=== PATIENT | female | born 1975 | race Caucasian/White ===

== ENCOUNTER 2016-02-28 19:19 | Emergency (ER) | payer OTHER ==
--- NOTE | 2016-02-28 21:26 | ED CLINICAL REPORT ---
Clinical Report - Physicians/Mid Levels [facility] [address] [place] [address] 02/28/2016 19:18 Patient: MARTIN MARTIN Time Seen: 20:29 Feb 28 2016. Arrived- By private vehicle. Historian- patient. HISTORY OF PRESENT ILLNESS Chief Complaint: DYSPNEA and HISTORY OF ASTHMA. This started 7 days and is still present. The dyspnea is described as moderate. The patient has had a cough. Takes asthma medications. (Patient reports asthma, worsening of her symptoms over 7 days, recently started on azithromycin, tomorrow is her last they have the antibiotic, taking breathing treatments at home as prescribed No recent travel. No fevers. Shortness of breath. Denies history of cardiac problems history of PE.). REVIEW OF SYSTEMS No sore throat, nasal discharge, fever, headache or palpitations. No calf pain, abdominal pain or black stools. All systems otherwise negative, except as recorded above. SOCIAL HISTORY Former smoker. Alcohol use. History of drug use: marijuana. ADDITIONAL NOTES The nursing notes have been reviewed. PHYSICAL EXAM Vital Signs: 02/28/2016 19:57 BP: 137/78. HR: 98. RR: 18. O2 saturation: 94%. Temp: 99.4 F. Pain level now: 8/10. Appearance: Alert. ENT: Pharynx normal. Uvula midline. Neck: Normal inspection. CVS: Normal heart rate and rhythm. Heart sounds normal. Respiratory: No respiratory distress. No fatigue. Wheezing present. No prolonged expiration. Abdomen: Soft and nontender. No organomegaly. No abdominal tenderness. Neuro: Oriented X 3. No motor deficit. PROGRESS AND PROCEDURES Course of Care: At this time patient is afebrile, isolated wheezing, PE less likely. Patient improved with DuoNeb treatment in the ER, 97% on room air. No retractions or tachypnea. No respiratory distress. Will start on Medrol Dosepak. Patient has good follow-up. Stable. No chest pain. 02/28/2016 21:22 BP: 121/71. HR: 88. RR: 14. O2 saturation: 97%. Patient is stable. Patient/family counseled. Differential Diagnosis: I considered viral bronchitis, laryngotracheobronchitis, croup, viral pneumonia, bacterial bronchitis, bacterial pneumonia, mycoplasmal bronchitis, chlamydial bronchitis, bronchospasm, allergic bronchospasm and pulmonary embolism as a possible cause of cough in this patient. This is a partial list of diagnoses considered. Disposition: Discharged. CLINICAL IMPRESSION Moderate persistent asthma with an acute exacerbation. INSTRUCTIONS Prescription Medications: Robitussin A-C cough syrup take five (5) mL orally every 6 hours as needed for cough for 3 days. Dispense sixty (60) mL. No refill. Substitution is permissible. Medrol Dosepak: take according to package directions. Dispense one (1) dosepak. No refills. Substitution is permissible. Follow-up: Follow up with your doctor in three days. Understanding of the discharge instructions verbalized. (Electronically signed by Bobbi Encinas P.A.-C 02/28/2016 21:41)
--- NOTE | 2016-02-28 21:26 | ED CLINICAL REPORT ---
Clinical Report - Physicians/Mid Levels [facility] [address] [place] [address] 02/28/2016 19:18 Patient: MARTIN MARTIN Time Seen: 20:29 Feb 28 2016. Arrived- By private vehicle. Historian- patient. HISTORY OF PRESENT ILLNESS Chief Complaint: DYSPNEA and HISTORY OF ASTHMA. This started 7 days and is still present. The dyspnea is described as moderate. The patient has had a cough. Takes asthma medications. (Patient reports asthma, worsening of her symptoms over 7 days, recently started on azithromycin, tomorrow is her last they have the antibiotic, taking breathing treatments at home as prescribed No recent travel. No fevers. Shortness of breath. Denies history of cardiac problems history of PE.). REVIEW OF SYSTEMS No sore throat, nasal discharge, fever, headache or palpitations. No calf pain, abdominal pain or black stools. All systems otherwise negative, except as recorded above. SOCIAL HISTORY Former smoker. Alcohol use. History of drug use: marijuana. ADDITIONAL NOTES The nursing notes have been reviewed. PHYSICAL EXAM Vital Signs: 02/28/2016 19:57 BP: 137/78. HR: 98. RR: 18. O2 saturation: 94%. Temp: 99.4 F. Pain level now: 8/10. Appearance: Alert. ENT: Pharynx normal. Uvula midline. Neck: Normal inspection. CVS: Normal heart rate and rhythm. Heart sounds normal. Respiratory: No respiratory distress. No fatigue. Wheezing present. No prolonged expiration. Abdomen: Soft and nontender. No organomegaly. No abdominal tenderness. Neuro: Oriented X 3. No motor deficit. PROGRESS AND PROCEDURES Course of Care: At this time patient is afebrile, isolated wheezing, PE less likely. Patient improved with DuoNeb treatment in the ER, 97% on room air. No retractions or tachypnea. No respiratory distress. Will start on Medrol Dosepak. Patient has good follow-up. Stable. No chest pain. 02/28/2016 21:22 BP: 121/71. HR: 88. RR: 14. O2 saturation: 97%. Patient is stable. Patient/family counseled. Differential Diagnosis: I considered viral bronchitis, laryngotracheobronchitis, croup, viral pneumonia, bacterial bronchitis, bacterial pneumonia, mycoplasmal bronchitis, chlamydial bronchitis, bronchospasm, allergic bronchospasm and pulmonary embolism as a possible cause of cough in this patient. This is a partial list of diagnoses considered. Disposition: Discharged. CLINICAL IMPRESSION Moderate persistent asthma with an acute exacerbation. INSTRUCTIONS Prescription Medications: Robitussin A-C cough syrup take five (5) mL orally every 6 hours as needed for cough for 3 days. Dispense sixty (60) mL. No refill. Substitution is permissible. Medrol Dosepak: take according to package directions. Dispense one (1) dosepak. No refills. Substitution is permissible. Follow-up: Follow up with your doctor in three days. Understanding of the discharge instructions verbalized. (Electronically signed by Bobbi Encinas P.A.-C 02/28/2016 21:41)
--- NOTE | 2016-02-28 21:26 | ED ORDER SUMMARY ---
..... Patient: MARTIN MARTIN OrderSheet [facility] VisitID: [id number] [place] [address] 40y, F Registration Date/Time: 02/28/2016 ORDER SHEET Weight: 99.7 kg (stated) Allergies: Nicoderm, PCN, Shellfish-derived Products, Sulfa Drugs GENERAL ORDERS: MEDICATION ORDERS: DuSade Neb Tx 1 unit dose (NOW) (20:10 02/28/2016 Scooby P.A.-C) (21:38 JQuivey R.N.) Dexamethasone PO 8mg (NOW) (20:44 02/28/2016 Scooby Shin.AKarla-C) ([facility] 21:38 JQuivey R.N.) (21:42 JQuivey R.N.) IV FLUIDS: ORDER SHEET NOTES: [Electronically signed by Bobbi Encinas P.A.-C (21:41 02/28/2016)] [Electronically signed by Jeremy Gonzalez R.N. (23:45 02/28/2016)] [Electronically locked/signed by Jeremy Gonzalez R.N. (23:45 02/28/2016)]
--- NOTE | 2016-02-28 21:26 | ED NURSING NOTES ---
Clinical Report - Nurses [facility] [address] [place] [address] 02/28/2016 19:18 Patient: MARTIN MARTIN TRIAGE Triage time 19:57. Acuity: LEVEL 3. Chief Complaint: DYSPNEA and COUGH. 20:04. Alert. SEPSIS SCREEN: Sepsis Screen. Negative (no infection suspected/documented). THERESA COMA SCORE: [place] Coma Scale: 15- eyes open spontaneously (4); best verbal response- oriented x 4 (5); best motor response- obeys commands (6). --20:04 Jeremy Gonzalez R.N. 19:57 02/28/16. BP: 137/78. HR: 98. RR: 18. O2 saturation: 94% on room air. Temp: 99.4 F (oral). Pain level now: 8/10. --20:04 Jeremy oGnzalez R.N. Weight: 99.7 kg stated. Height/Length: 67 inches Per Patient. BMI: 34.5. --20:03 Jeremy Gonzalez R.N. Medications Azithromycin Oral 500 mg, daily. --20:00 Jeremy Gonzalez R.N. Albuterol Sulfate HFA Inhalation 2 puffs, as needed. --20:01 Jeremy Gonzalez R.N. Albuterol Sulfate Inhalation 1 unit dose, PRN. --20:01 Jeremy Gonzalez R.N. Flovent HFA Inhalation. NexIUM Oral. Serevent Diskus Inhalation. ZyrTEC Allergy Oral. --20:01 Jeremy Gonzalez R.N. Medication/allergy information source: the patient. --20:04 Jeremy Gonzalez R.N. Allergies Nicoderm. PCN. Shellfish-derived Products. Sulfa Drugs. --20:01 Jeremy Gonzalez R.N. History Arrived by private vehicle. Historian: patient. Unaccompanied. Primary physician (Flex). Onset. (1 months ago). ( Patient reports having a cough for about 1 month started a Z-pac on Tuesday states she is worse today). 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 PAST MEDICAL HX: Immunizations: up-to-date. Last normal menstrual period- Feb 08, 2016. SOCIAL HX: Former smoker, end date 05/2015. Occasional alcohol use. History of occasional drug use: marijuana. --20:04 Jeremy Gonzalez R.N. PROBLEMS: Ovarian Cyst. Dental Caries. Asthma. Allergic Reaction. Gastritis. Sciatica. Gastroesophageal Reflux Disease. Pelvic Inflammatory Disease. Pyelonephritis. Torticollis. --20:02 Jeremy Gonzalez R.N. ADDITIONAL SURGERIES: Dental Surgery. Discectomy for intervertebral herniated disc, nucleus pulposus. Fracture Repair. --20:02 Jeremy Gonzalez R.N. Interventions ID band on patient. To treatment room. --20:04 Jeremy Gonzalez R.N. PHYSICAL ASSESSMENT 20:04. Ambulatory to room. Patient gowned. GENERAL / NEURO / PSYCH: Alert. Oriented X 4. HEENT: No facial asymmetry noted. Mucous membranes are pink. RESPIRATORY: Respirations not labored. SKIN: Skin intact. Skin is warm and dry. Normal skin turgor. --20:04 Jeremy Gonzalez R.N. NURSING PROGRESS NOTES 20:04. Head of bed elevated. Two patient identifiers checked. Call light placed in reach. Bed placed in lowest position. Brakes of bed on. Patient ready for evaluation- chart flagged. --20:04 Jeremy Gonzalez R.N. 20:15. Oxygen administered by nasal cannula at 2 liters. --20:15 Jeremy Gonzalez R.N. 21:05 02/28/2016 Duoneb (Ipratropium-Albuterol) Neb TX 1 unit dose given. Given by the respiratory therapist. Allergies verified and confirmed 5 rights. --21:38 Jeremy Gonzalez R.N. 21:32 02/28/2016 Dexamethasone (Dexamethasone) PO 8 mg given. Allergies verified and confirmed 5 rights. --21:42 Jeremy Gonzalez R.N. 21:41. The patient is calm and resting quietly. RESPIRATORY: No respiratory distress. SKIN: Skin is warm and dry. Skin color within normal limits. --21:44 Jeremy Gonzalez R.N. DISPOSITION / DISCHARGE 21:22 02/28/16. BP: 121/71. HR: 88. RR: 14. O2 saturation: 97% on room air. --21:24 Armand Krishnan, ER Financial Services Technician Departure time: 21:43. Condition at departure: stable. No learning barriers present. Discharge instructions provided and reviewed with the patient. Reviewed medication(s) side effects, precautions, dosing and course information. Prescription(s) given to the patient. Patient verbalized understanding. The patient was discharged home and unaccompanied at time of discharge. She left the Emergency Department ambulatory and via private vehicle. Patient driving. FALL RISK ASSESSMENT: Fall risk assessment completed. No fall risk identified. --21:43 Jeremy Gonzalez R.N. 21:42 02/28/16. BP: 126/63. HR: 94. RR: 17. O2 saturation: 97% on room air. Pain level now: 03/19. --21:43 Jeremy Gonzalez R.N. Locked/Released at 02/28/2016 23:45 by Jeremy Gonzalez R.N.
--- NOTE | 2016-02-28 21:26 | ED NURSING NOTES ---
Clinical Report - Nurses [facility] [address] [place] [address] 02/28/2016 19:18 Patient: MARTIN MARTIN TRIAGE Triage time 19:57. Acuity: LEVEL 3. Chief Complaint: DYSPNEA and COUGH. 20:04. Alert. SEPSIS SCREEN: Sepsis Screen. Negative (no infection suspected/documented). THERESA COMA SCORE: [place] Coma Scale: 15- eyes open spontaneously (4); best verbal response- oriented x 4 (5); best motor response- obeys commands (6). --20:04 Jeremy Gonzalez R.N. 19:57 02/28/16. BP: 137/78. HR: 98. RR: 18. O2 saturation: 94% on room air. Temp: 99.4 F (oral). Pain level now: 8/10. --20:04 Jeremy Gonzalez R.N. Weight: 99.7 kg stated. Height/Length: 67 inches Per Patient. BMI: 34.5. --20:03 Jeremy Gonzalez R.N. Medications Azithromycin Oral 500 mg, daily. --20:00 Jeremy Gonzalez R.N. Albuterol Sulfate HFA Inhalation 2 puffs, as needed. --20:01 Jeremy Gonzalez R.N. Albuterol Sulfate Inhalation 1 unit dose, PRN. --20:01 Jeremy Gonzalez R.N. Flovent HFA Inhalation. NexIUM Oral. Serevent Diskus Inhalation. ZyrTEC Allergy Oral. --20:01 Jeremy Gonzalez R.N. Medication/allergy information source: the patient. --20:04 Jeremy Gonzalez R.N. Allergies Nicoderm. PCN. Shellfish-derived Products. Sulfa Drugs. --20:01 Jeremy Gonzalez R.N. History Arrived by private vehicle. Historian: patient. Unaccompanied. Primary physician (Flex). Onset. (1 months ago). ( Patient reports having a cough for about 1 month started a Z-pac on Tuesday states she is worse today). 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 PAST MEDICAL HX: Immunizations: up-to-date. Last normal menstrual period- Feb 08, 2016. SOCIAL HX: Former smoker, end date 05/2015. Occasional alcohol use. History of occasional drug use: marijuana. --20:04 Jeremy Gonzalez R.N. PROBLEMS: Ovarian Cyst. Dental Caries. Asthma. Allergic Reaction. Gastritis. Sciatica. Gastroesophageal Reflux Disease. Pelvic Inflammatory Disease. Pyelonephritis. Torticollis. --20:02 Jeremy Gonzalez R.N. ADDITIONAL SURGERIES: Dental Surgery. Discectomy for intervertebral herniated disc, nucleus pulposus. Fracture Repair. --20:02 Jeremy Gonzalez R.N. Interventions ID band on patient. To treatment room. --20:04 Jeremy Gonzalez R.N. PHYSICAL ASSESSMENT 20:04. Ambulatory to room. Patient gowned. GENERAL / NEURO / PSYCH: Alert. Oriented X 4. HEENT: No facial asymmetry noted. Mucous membranes are pink. RESPIRATORY: Respirations not labored. SKIN: Skin intact. Skin is warm and dry. Normal skin turgor. --20:04 Jeremy Gonzalez R.N. NURSING PROGRESS NOTES 20:04. Head of bed elevated. Two patient identifiers checked. Call light placed in reach. Bed placed in lowest position. Brakes of bed on. Patient ready for evaluation- chart flagged. --20:04 Jeremy Gonzalez R.N. 20:15. Oxygen administered by nasal cannula at 2 liters. --20:15 Jeremy Gonzalez R.N. 21:05 02/28/2016 Duoneb (Ipratropium-Albuterol) Neb TX 1 unit dose given. Given by the respiratory therapist. Allergies verified and confirmed 5 rights. --21:38 Jeremy Gonzalez R.N. 21:32 02/28/2016 Dexamethasone (Dexamethasone) PO 8 mg given. Allergies verified and confirmed 5 rights. --21:42 Jeremy Gonzalez R.N. 21:41. The patient is calm and resting quietly. RESPIRATORY: No respiratory distress. SKIN: Skin is warm and dry. Skin color within normal limits. --21:44 Jeremy Gonzalez R.N. DISPOSITION / DISCHARGE 21:22 02/28/16. BP: 121/71. HR: 88. RR: 14. O2 saturation: 97% on room air. --21:24 Armand Krishnan, ER Logging Equipment Mechanic Departure time: 21:43. Condition at departure: stable. No learning barriers present. Discharge instructions provided and reviewed with the patient. Reviewed medication(s) side effects, precautions, dosing and course information. Prescription(s) given to the patient. Patient verbalized understanding. The patient was discharged home and unaccompanied at time of discharge. She left the Emergency Department ambulatory and via private vehicle. Patient driving. FALL RISK ASSESSMENT: Fall risk assessment completed. No fall risk identified. --21:43 Jeremy Gonzalez R.N. 21:42 02/28/16. BP: 126/63. HR: 94. RR: 17. O2 saturation: 97% on room air. Pain level now: 03/19. --21:43 Jeremy Gonzalez R.N. Locked/Released at 02/28/2016 23:45 by Jeremy Gonzalez R.N.
--- NOTE | 2016-02-28 21:26 | ED ORDER SUMMARY ---
..... Patient: MARTIN MARTIN OrderSheet [facility] VisitID: [id number] [place] [address] 40y, F Registration Date/Time: 02/28/2016 ORDER SHEET Weight: 99.7 kg (stated) Allergies: Nicoderm, PCN, Shellfish-derived Products, Sulfa Drugs GENERAL ORDERS: MEDICATION ORDERS: DuSade Neb Tx 1 unit dose (NOW) (20:10 02/28/2016 Scooby P.A.-C) (21:38 JQuivey R.N.) Dexamethasone PO 8mg (NOW) (20:44 02/28/2016 Scooby Shin.AKarla-C) ([facility] 21:38 JQuivey R.N.) (21:42 JQuivey R.N.) IV FLUIDS: ORDER SHEET NOTES: [Electronically signed by Bobbi Encinas P.A.-C (21:41 02/28/2016)] [Electronically signed by Jeremy Gonzalez R.N. (23:45 02/28/2016)] [Electronically locked/signed by Jeremy Gonzalez R.N. (23:45 02/28/2016)]
--- NOTE | 2016-02-28 23:45 | ED MED RECONCILIATION SUMMARY ---
Patient: MARTIN MARTIN Medication Reconciliation Report [facility] VisitID: [id number] [place] [address] 40y, F Registration Date/Time: 02/28/2016 Weight: 99.7 kg Height/Length: 67 in. BMI: 34.5 ALLERGIES: Nicoderm, PCN, Shellfish-derived Products, Sulfa Drugs The patient's Home Medications are listed below: THE FOLLOWING MEDICATIONS NEED TO BE RECONCILED: Albuterol Sulfate HFA Inhalation 2 puffs Albuterol Sulfate Inhalation 1 unit dose, PRN Azithromycin Oral 500 mg, daily Flovent HFA Inhalation NexIUM Oral Serevent Diskus Inhalation ZyrTEC Allergy Oral The source(s) of the original Home Medication information: patient The following Medications were given to the patient in the Emergency Department: Duoneb [Neb Tx] Neb TX 1 unit dose, administered: 02/28/2016 9:05:00 PM Dexamethasone [PO] PO 8 mg, administered: 02/28/2016 9:32:00 PM The following Medications were prescribed to the patient: Robitussin A-C cough syrup take five (5) mL orally every 6 hours as needed for cough for 3 days. Dispense sixty (60) mL. No refill. Substitution is permissible. -- Bobbi Encinas PKarlaAYevgeniy Medrol Dosepak: take according to package directions. Dispense one (1) dosepak. No refills. Substitution is permissible. -- Bobbi Encinas P.AKarla-Edith
--- NOTE | 2016-02-28 23:45 | ED DISCHARGE INSTRUCTIONS ---
Patient: MARTIN MARTIN General Instructions [facility] VisitID: [id number] [place] [address] 40y, F Registration Date/Time: 02/28/2016 Moderate persistent asthma with an acute exacerbation. INSTRUCTIONS Prescription Medications: Robitussin A-C cough syrup take five (5) mL orally every 6 hours as needed for cough for 3 days. Dispense sixty (60) mL. No refill. Substitution is permissible. Medrol Dosepak: take according to package directions. Dispense one (1) dosepak. No refills. Substitution is permissible. Follow-up: Follow up with your doctor in three days. Understanding of the discharge instructions verbalized. ADDITIONAL INFORMATION Asthma [Adult] Asthma is a disease where the small air passages within the lung go into spasm and restrict the flow of air. Inflammation and swelling of the airways cause further restriction. During an acute asthma attack, these factors cause difficulty breathing, wheezing, cough and chest tightness. An asthma attack can be triggered by many things. Common triggers include the common cold, bronchitis, pneumonia, irritants such as smoke or pullutants in the air, emotional upset and heavy exercise. Inmany adults with asthma, allergies todust, mold, pollen and animal dander can cause an asthma attack. Skipping doses of daily asthma medicine can also bring on an asthma attack. Asthma can be controlled with proper medicines and decreased exposure to known allergens. Home Care: Take prescribed medicine exactly at the times advised. If you have a hand-held inhaler or aerosol breathing medicine, do not use it more than once every four hours, unless told to do so. (If you need this medicine more than every four hours, you may need to return to the Emergency Room.) If prescribed an antibiotic or prednisone, take all of the medicine even if you are feeling better after a few days. Do not smoke. Avoid being exposed to the smoke of others. Some persons with asthma have worsening of their symptoms when they take aspirin and non-steroidal medicines like ibuprofen (Motrin, Advil) and naproxen (Aleve, Naprosyn). Talk to your doctor if you think this may apply to you. Acetaminophen (Tylenol)should be safe to use. Follow Up with your doctor, or as advised by our staff. Always bring all of your current medicines with you for your doctor to see. If you do not already have one, talk to your doctor about developing a personalized "Asthma Action Plan." [NOTE: A pneumococcal vaccine and yearly flu shot (every fall) are recommended. Ask your doctor about this.] Get Prompt Medical Attention if any of the following occur: Increased wheezing or shortness of breath Need to use your inhalers more often than usual without relief Fever of 100.4F (38C) or higher, or as directed by your healthcare provider Coughing up lots of dark-colored or bloody sputum (mucus) Chest pain with each breath You do not start to improve within 24 hours Call 911 If Any Of The Following Occur : Trouble walking or talking because of shortness of breath If you use a peak flow meter andyou are still in the red zone (less than 50 percent) 15 minutes after using inhaler medication Lips or fingernails turning mcmahan or blue Bronchitis With Wheezing (Viral Or Bacterial: Adult) Bronchitis is an infection of the air passages. It often occurs during the common cold and is usually caused by a virus. Symptoms include cough with mucus (phlegm) and low-grade fever. If there is a lot of inflammation, air flow is restricted. The air passages may also go into spasm, especially if you are an asthmatic. This causes wheezing and difficulty breathing even in persons who do not have asthma. Bronchitis usually lasts 7-14 days. The wheezing should improve with treatment during the first week. An inhaler is often prescribed to relax the air passages and stop wheezing. Antibiotics will be prescribed if your doctor thinks there is also a secondary bacterial infection. Home Care: If symptoms are severe, rest at home for the first 2-3 days. When resuming activity, don't let yourself become overly tired. Do not smoke and avoid exposure to the smoke of others. You may use acetaminophen (Tylenol) or ibuprofen (Motrin, Advil) to control fever, unless another medicine was prescribed. [NOTE: If you have chronic liver or kidney disease or ever had a stomach ulcer or GI bleeding, talk with your doctor before using these medicines.] (Aspirin should never be used in anyone under 18 years of age who is ill with a fever. It may cause severe liver damage.) Your appetite may be poor so a light diet is fine. Avoid dehydration by drinking 6-8 glasses of fluids per day (water, soft, drinks, juices, tea, soup, etc.). Extra fluids will help loosen secretions in the lungs. [id number] cough medicines that containdextromethorphan(such as Robitussin DM) and decongestants (Actifed or Sudafed) may help relieve cough and congestion. [NOTE: Do not use decongestants if you have high blood pressure.] If you were given an inhaler, use it exactly as directed. If you need to use it more often than prescribed, your condition may be worsening. Contact your doctor or this facility. If prescribed, finish all antibiotic medicine, even if you are feeling better after only a few days. Follow Up With Your Doctor Or As Directed If You Are Not Starting To Feel Better After Three Days. [NOTE: If you are age 65 or older, or if you have chronic asthma or COPD, we recommend a pneumococcal vaccination every five years and a yearly influenza vaccination (flu shot) every . Ask your doctor about this. If you had an x-ray or EKG (electrocardiogram), it will be reviewed by a specialist. You will be notified of any new findings that may affect your care.] Get Prompt Medical Attention If Any Of The Following Occur: Increased wheezing, shortness of breath or pain with breathing Fever of 100.4F (38C) oral or higher, not better with fever medication Coughing up blood or increasing amounts of colored sputum Weakness, drowsiness, headache, facial pain, ear pain or a stiff neck Lower leg swelling, tenderness, redness or pain You have been given the following additional information: Asthma, Acute (Adult) Bronchitis With Wheezing (Adult) (Electronically signed by Bobbi Encinas P.A.-C 02/28/2016 21:41)
--- NOTE | 2016-02-28 23:45 | ED MAR SUMMARY ---
..... Medication Administration Record [facility] [address] [place] [address] Patient: MARTIN MARTIN Visit ID: [id number] 40y, F Weight: 99.7 kg Height/Length: 67 in BMI: 34.5 ALLERGIES: Nicoderm, PCN, Shellfish-derived Products, Sulfa Drugs Given 21:05 02/28/2016 Jeremy Gonzalez, RKarlaN. Medication Administered: DUONEB [NEB TX] (IPRATROPIUM-ALBUTEROL), Dose: 1 unit dose Neb TX. Medication Ordered: DuoNeb Neb Tx 1 unit dose (NOW). Given 21:32 02/28/2016 Jeremy Gonzalez, R.N. Medication Administered: DEXAMETHASONE [PO] (DEXAMETHASONE), Dose: 8 mg PO. Medication Ordered: Dexamethasone PO 8mg (NOW).
--- NOTE | 2016-02-28 23:45 | ED MED RECONCILIATION SUMMARY ---
Patient: MARTIN MARTIN Medication Reconciliation Report [facility] VisitID: [id number] [place] [address] 40y, F Registration Date/Time: 02/28/2016 Weight: 99.7 kg Height/Length: 67 in. BMI: 34.5 ALLERGIES: Nicoderm, PCN, Shellfish-derived Products, Sulfa Drugs The patient's Home Medications are listed below: THE FOLLOWING MEDICATIONS NEED TO BE RECONCILED: Albuterol Sulfate HFA Inhalation 2 puffs Albuterol Sulfate Inhalation 1 unit dose, PRN Azithromycin Oral 500 mg, daily Flovent HFA Inhalation NexIUM Oral Serevent Diskus Inhalation ZyrTEC Allergy Oral The source(s) of the original Home Medication information: patient The following Medications were given to the patient in the Emergency Department: Duoneb [Neb Tx] Neb TX 1 unit dose, administered: 02/28/2016 9:05:00 PM Dexamethasone [PO] PO 8 mg, administered: 02/28/2016 9:32:00 PM The following Medications were prescribed to the patient: Robitussin A-C cough syrup take five (5) mL orally every 6 hours as needed for cough for 3 days. Dispense sixty (60) mL. No refill. Substitution is permissible. -- Bobbi Encinas PKarlaAYevgeniy Medrol Dosepak: take according to package directions. Dispense one (1) dosepak. No refills. Substitution is permissible. -- Bobbi Encinas P.AKarla-Edith
--- NOTE | 2016-02-28 23:45 | ED MAR SUMMARY ---
..... Medication Administration Record [facility] [address] [place] [address] Patient: MARTIN MARTIN Visit ID: [id number] 40y, F Weight: 99.7 kg Height/Length: 67 in BMI: 34.5 ALLERGIES: Nicoderm, PCN, Shellfish-derived Products, Sulfa Drugs Given 21:05 02/28/2016 Jeremy Gonzalez, RKarlaN. Medication Administered: DUONEB [NEB TX] (IPRATROPIUM-ALBUTEROL), Dose: 1 unit dose Neb TX. Medication Ordered: DuoNeb Neb Tx 1 unit dose (NOW). Given 21:32 02/28/2016 Jeremy Gonzalez, R.N. Medication Administered: DEXAMETHASONE [PO] (DEXAMETHASONE), Dose: 8 mg PO. Medication Ordered: Dexamethasone PO 8mg (NOW).
== END 2016-02-28 21:43 | disposition home or self-care (01) ==
LOC: ED SRH 19:19
DX: J45.41 Moderate persistent asthma with (acute) exacerbation (principal); K21.9 Gastro-esophageal reflux disease without esophagitis; Z87.891 Personal history of nicotine dependence; Z88.0 Allergy status to penicillin; Z88.2 Allergy status to sulfonamides; Z91.013 Allergy to seafood

== ENCOUNTER 2016-04-30 15:18 | Outpatient (CLI) | payer OTHER ==
--- NOTE | 2016-04-30 17:12 | DIAGNOSTIC IMAGING REPORT ---
PROCEDURE: US COMPLETE PELVIC W/TRANSVAG INDICATION: Pelvic pain. History of ovarian cyst. TECHNIQUE: Transabdominal and endovaginal mcmahan scale and color Doppler sonographic images of the female pelvis were obtained. COMPARISON: Comparison is made to pelvic ultrasound on 01/06/2016. FINDINGS: TRANSABDOMINAL SCANS: Uterus is of normal size (7.0 x 4.6 x 4.0 cm). Kidneys are normal. TRANSVAGINAL SCANS: Endometrial thickness is normal (6 mm). Right ovary is normal (4.9 cm) with normal vascular flow. Left ovary is normal (4.2 cm) with normal vascular flow. There has been interval resolution of left ovarian cyst. IMPRESSION: 1. Normal pelvic ultrasound with resolution of left ovarian cyst.
== END 2016-04-30 23:00 | disposition home or self-care (01) ==
LOC: US SRH 15:18
DX: N83.202 Unspecified ovarian cyst, left side (principal)

== ENCOUNTER 2016-06-24 17:53 | Emergency (ER) | payer OTHER ==
--- NOTE | 2016-06-24 22:18 | DIAGNOSTIC IMAGING REPORT ---
PROCEDURE: US ABDOMEN ULTRASOUND-LIMITED INDICATION: EPIGASTRIC ABDOMINAL PAIN TECHNIQUE: Witt scale and color Doppler sonographic images of the abdomen were obtained. COMPARISON: CT abdomen/pelvis 11/07/2014. FINDINGS: Liver measures 19 cm with increased echogenicity. Normal gallbladder and CBD, 4 mm. Normal pancreas. IVC is patent. Normal hepatopetal flow. Normal right kidney measures 10.6 cm. IMPRESSION: 1. Echogenic liver suggestive of fatty infiltration versus intrinsic liver disease 2. Normal gallbladder
--- NOTE | 2016-06-24 23:51 | ED ORDER SUMMARY ---
..... Patient: MARTIN MARTIN OrderSheet [facility] VisitID: [id number] [place] [address] 40y, F Registration Date/Time: 06/24/2016 ORDER SHEET Weight: 95.2 kg (stated) Allergies: Shellfish-derived Products, Penicillin, Sulfa Antibiotics GENERAL ORDERS: UA-Culture if indicated Urgent (19:48 06/24/2016 Ely Roman) (Ack 19:51 CHagmusa ER Dioramist) (20:02 MCook R.N.) Urine Urgent (19:48 06/24/2016 Ely Roman) (Ack 19:51 Celestino ER Dioramist) (20:02 MCook R.N.) US Abdomen Limited (No) Urgent (20:38 06/24/2016 Ely Roman) (Ack 20:43 Celestino ER Dioramist) (22:29 MCook R.N.) CBC w Diff Urgent (20:39 06/24/2016 Ely Roman) (20:41 DDavis R.N.) CMP Urgent (20:39 06/24/2016 Ely Roman) (20:41 DDavis R.N.) Lipase Urgent (20:39 06/24/2016 Ely Roman) (20:41 DDavis R.N.) MEDICATION ORDERS: GI Cocktail WHITE PO 30 mL (NOW) (20:39 06/24/2016 Ely Roman) (20:45 DDavis R.N.) Tramadol PO 100 mg (NOW) (23:41 06/24/2016 Fatmata PETTY) (23:59 MCook R.N.) Carafate PO 20 ml (NOW) (23:41 06/24/2016 Fatmata PETTY) (0:00 MCook R.N.) Protonix PO 40 mg (NOW) (23:41 06/24/2016 Fatmata PETTY) (23:59 MCook R.N.) IV FLUIDS: IV Saline Lock (20:39 06/24/2016 Ely Roman) (21:01 MCook R.N.) Toradol IV 30 mg (NOW) (22:26 06/24/2016 Екатерина Gutierres verbal order read back to Ely Roman) (22:27 Екатерина Gutierres) Toradol IV 30 mg (NOW) (22:31 06/24/2016 Ely Roman) (Cancelled: Duplicate Order22:31 Ely Roman) Zofran IV 4 mg (NOW) (23:41 06/24/2016 Fatmata PETTY) (23:57 Екатерина Gutierres) ORDER SHEET NOTES: [Electronically signed by Luciano James R.N. (00:16 06/25/2016)] [Electronically signed by Grover Rincon MD (07:49 06/28/2016)] [Electronically locked/signed by Luciano James R.N. (00:16 06/25/2016)]
--- NOTE | 2016-06-24 23:51 | ED NURSING NOTES ---
Clinical Report - Nurses [facility] [address] [place] [address] 06/24/2016 17:53 Patient: MARTIN MARTIN TRIAGE Triage time 19:37 Jun 24 2016. Acuity: LEVEL 3. Chief Complaint: ABDOMINAL PAIN, NAUSEA and VOMITING. Alert. No acute distress. SEPSIS SCREEN: Sepsis Screen. Negative (no infection suspected/documented). --19:42 Luciano James R.N. 19:37 06/24/16. Pain level now: 08/16. --19:42 Luciano James R.N. 19:45 06/24/16. BP: 109/68. HR: 72. RR: 16. O2 saturation: 96% on room air. Temp: 98.1 F. Pain level now: 08/16. --19:45 Luciano James R.N. Weight: 95.2 kg stated. Height/Length: 67 inches Per Patient. BMI: 32.9. --19:36 Luciano James R.N. Medications NexIUM Oral. --19:39 Luciano James R.N. Claritin. --19:39 Luciano James R.N. Aerospan Inhalation. Albuterol Sulfate Inhalation. Claritin Oral. --19:40 Luciano James R.N. Allergies Shellfish-derived Products. --19:40 Luciano James R.N. Penicillin. --19:40 Luciano James R.N. Sulfa Antibiotics. --19:40 Luciano James R.N. History Arrived by private vehicle. Historian: patient. Onset. (Tuesday night). ( Pt had sudden onset of pain Tuesday night at the [employer] game, nausea followed the next morning from the pain.). She has had diarrhea (> 1 week ago). She has had fever. PAST MEDICAL HX: Immunizations: up-to-date. Last normal menstrual period- May 2016. SOCIAL HX: Never smoker. Alcohol use; consumes beer occasionally. History of drug use: marijuana. (last use yesterday). No recent travel. No infectious disease exposure. No known contact with a sick individual. ABUSE ASSESSMENT: Abuse assessment: The patient was asked "Do you feel safe in your home?". No report of abuse. SELF HARM ASSESSMENT: A self harm assessment was performed. The patient answered "no" to the question "Have you recently felt down, depressed, or hopeless?", "Do you have thoughts of harming or killing yourself?" and "Have you ever tried to hurt yourself before today?". FALL RISK ASSESSMENT: Fall risk assessment completed. No fall risk identified. NUTRITIONAL RISK ASSESSMENT: The nutritional risk assessment revealed no deficiencies. FUNCTIONAL ASSESSMENT: Functional assessment: no impairments noted. LEARNING NEEDS ASSESSMENT: The learning needs assessment revealed no barriers. SKIN INTEGRITY ASSESSMENT: Skin integrity risk assessment completed. No skin integrity risk identified. --19:42 Luciano James R.N. PROBLEMS: Ovarian Cyst. Dental Caries. Asthma. URI. Myofascial Strain. Allergic Reaction. Nausea. Headache. Gastritis. Back Injury. Sciatica. Lumbar Strain. Acute Pain. Abdominal Pain. Gastroesophageal Reflux Disease. Back Pain. Pelvic Inflammatory Disease. Pyelonephritis. Torticollis. LNMP - Last Normal Menstrual Period. --19:41 Luciano James R.N. ADDITIONAL SURGERIES: Dental Surgery. Discectomy for intervertebral herniated disc, nucleus pulposus. Fracture Repair. --19:41 Luciano James R.N. Interventions ID band on patient. --19:42 Luciano James R.N. NURSING PROGRESS NOTES The plan of care for this patient has been created. Monitoring of patient in place. Patient ID band checked for patient name and birthdate: patient confirmed. Blood samples drawn from the right antecubital space peripheral IV site by nurse per protocol ; labeled in presence of the patient: rainbow set. Line flushed with 10 mL normal saline post blood draw. Patient gowned. Head of bed elevated. Reassurance given. Two patient identifiers checked. Call light placed in reach. Bed placed in lowest position. Patient ready for evaluation- ED physician notified. ( ED Phys at bedside assessing Pt, Pt is calm, cooperative.). --20:03 Luciano James R.N. 20:36 06/24/2016 Site #1 started via IV in the right antecubital space with an 20g angiocath, with aseptic technique and good blood return; one attempt. Blood drawn: rainbow set. Labeled in the presence of the patient and sent to the lab. Saline lock flushed with 10 mL saline. --21:01 Luciano James R.N. 20:45 06/24/2016 GI COCKTAIL WHITE (Simethicone) PO Oral Suspension 30 mL given. Allergies verified and confirmed 5 rights. --20:45 Khang Landon R.N. 21:04 06/24/16. BP: 107/67. HR: 80. RR: 16. O2 saturation: 96% on room air. Pain level now: 08/16. --21:05 Luciano James R.N. ( Pt reports the GI cocktail did help slightly, reports her pain is still present though, VSS.). --21:05 Luciano James R.N. ( US at bedside.). --21:49 Luciano James R.N. ( Pt resting in room, VSS, Pt reporting pain is the same, requesting something for the pain.). --22:23 Luciano James R.N. 22:21 06/24/16. BP: 112/73. HR: 64. O2 saturation: 98% on room air. Pain level now: 08/16. --22:23 Luciano James R.N. 22:27 06/24/2016 Toradol IVP 30 mg given over 2 minute(s) via site #1. Allergies verified and confirmed 5 rights. IV patency established. IV site checked: no pain, redness, or swelling. IV flushed thoroughly pre- and post-medication administration. IVP given by RN. --22:27 Luciano James R.N. ( MD at bedside to discuss POC with Pt.). --23:43 Luciano James R.N. 23:57 06/24/2016 Zofran (Ondansetron HCl) IVP 4 mg given over 2 minute(s) via site #1. Allergies verified and confirmed 5 rights. IV patency established. IV site checked: no pain, redness, or swelling. IV flushed thoroughly pre- and post-medication administration. IVP given by RN. --23:57 Luciano James R.N. 23:59 06/24/2016 Tramadol (TraMADol HCl) PO Tablets 100 mg given. Allergies verified, confirmed 5 rights and sedative warning given to the patient. --23:59 Luciano James R.N. 23:59 06/24/2016 Protonix (Pantoprazole Sodium) PO Tablets 40 mg given. Allergies verified and confirmed 5 rights. --23:59 Luciano James R.N. 23:59 06/24/2016 Carafate (Sucralfate) PO Oral Suspension 2 gm given. Allergies verified and confirmed 5 rights. --23:59 Luciano James R.N. ( Pt is very agitated and frustrated with plan of care, wants to go home, anxious because NOC MD had not been in to see her hours ago when shift change occurred. MD did come to see Pt, she is still agitated, anxious to go home, states she "does not feel better". Scheduled meds given as ordered, Pt ready for DC.). --00:04 Luciano James R.N. 21:14 06/24/2016 GI COCKTAIL WHITE PO Response: no adverse reaction symptoms have improved. --00:14 Luciano James R.N. 00:10 06/25/2016 Site #1 removed upon discharge. Bandage applied. --00:15 Luciano James R.N. 00:14 06/25/2016 Toradol IVP Response: no adverse reaction symptoms are the same. --00:14 Luciano James R.N. DISPOSITION / DISCHARGE Condition at departure: improved and stable. The goals identified in the patient's plan of care were met. No learning barriers present. Discharge instructions provided and reviewed with the patient. Reviewed warnings (Pt instructed not to drive or drink ETOH while taking Tramadol). Reviewed medication(s) side effects, precautions, dosing and course information. Prescription(s) given to the patient. Reviewed referral to a primary care physician for followup. Patient verbalized understanding. Written instructions provided in Brazilian. The patient was discharged home. She left the Emergency Department ambulatory and via private vehicle. Spouse driving (Spouse outside to pick Pt up.). --00:13 Luciano James R.N. Departure time: 00:Jun 25 2016. ( Pt has calmed down, ready for DC, cooperative, more pleasant, ambulatory, VSS.). --00:14 Luciano James R.N. 00:15 06/25/16. BP: 129/86. HR: 70. RR: 18. O2 saturation: 99% on room air. Temp: deferred. Pain level now: 08/16. --00:16 Luciano James R.N. Locked/Released at 06/25/2016 0:16 by Luciano James R.N.
--- NOTE | 2016-06-24 23:51 | ED CLINICAL REPORT ---
Clinical Report - Physicians/Mid Levels [facility] [address] [place] [address] 06/24/2016 17:53 Patient: MARTIN MARTIN Time Seen: 23:39 Jun 24 2016. Arrived- By private vehicle. Historian- patient. CPT: ER phys charges level 4 (#[id number]). HISTORY OF PRESENT ILLNESS Chief Complaint: ABDOMINAL PAIN. At its maximum, severity described as moderate. When seen in the E.D., severity described as moderate. Modifying factors- worsened by movement. Not relieved by anything. It is described as "pain" and well localized and it is described as located in the epigastric area and left upper quadrant. 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 The patient has had nausea. She has had mild vomiting (yesterday). The vomiting has occurred only once. Similar symptoms previously: As bad. Diagnosis: ulcer (reflux). Recent medical care: Not recently seen/assessed. REVIEW OF SYSTEMS No constipation, black stools, hematemesis, difficulty with urination or pain with urination. No urinary frequency, fever, sore throat, chest pain or difficulty breathing. No joint pain, skin rash, chills or back pain. Denies current . reflux recently worse despite being on nexium. All systems otherwise negative, except as recorded above. PAST HISTORY Ovarian Cyst. Dental Caries. Asthma. URI. Myofascial Strain. Allergic Reaction. Nausea. Headache. Gastritis. Back Injury. Sciatica. Lumbar Strain. Acute Pain. Abdominal Pain. Gastroesophageal Reflux Disease. Back Pain. Pelvic Inflammatory Disease. Pyelonephritis. Torticollis. LNMP - Last Normal Menstrual Period. - ADDITIONAL SURGERIES: Dental Surgery. Discectomy for intervertebral herniated disc, nucleus pulposus. Fracture Repair. Moderate gastroesophageal reflux. Medications: Aerospan Inhalation. Albuterol Sulfate Inhalation. Claritin Oral. Claritin. NexIUM Oral. Allergies: Penicillin. Shellfish-derived Products. Sulfa Antibiotics. SOCIAL HISTORY Never smoker. Occasional alcohol use. History of drug use: marijuana. ADDITIONAL NOTES The nursing notes have been reviewed. PHYSICAL EXAM Vital Signs: 06/24/2016 19:45 BP: 109/68. HR: 72. RR: 16. O2 saturation: 96%. Temp: 98.1 F. Pain level now: 710. Appearance: Alert. Anxious. Patient in mild distress. Eyes: Pupils equal, round and reactive to light. Eyes normal inspection. ENT: Ears normal. Nose normal. Pharynx normal. Neck: Normal inspection. Neck supple. CVS: Normal heart rate and rhythm. Heart sounds normal. Pulses normal. Respiratory: No respiratory distress. Breath sounds normal. Chest nontender. Abdomen: Soft. Moderate tenderness in the epigastric area and left upper quadrant with guarding present. Bowel sounds normal. No mass. Back: Normal inspection. Skin: Skin warm. Normal skin color. No rash. Extremities: Extremities exhibit normal ROM. No lower extremity edema. Neuro: Oriented X 3. No motor deficit. No sensory deficit. LABS, X-RAYS, AND EKG Abdominal Sonogram: No acute disease. Laboratory Tests: UA-Culture if indicated: (NORM: 06/24/2016 19:45) ( [facility] 06/24/2016 20:38) Final results Test Result Flag Units (Reference) URINE COLOR YELLOW URINE APPEARANCE CLEAR URINE GLUCOSE NEGATIVE (NEGATIVE) URINE BILIRUBIN NEGATIVE (NEGATIVE) URINE KETONE NEGATIVE (NEGATIVE) URINE SPECIFIC GRAVITY 1.025 (1.010-1.030) URINE PH 6.0 (5.0-8.0) URINE PROTEIN NEGATIVE (NEGATIVE) URINE UROBILINOGEN 0.2 EU/dL (0.2-1.0) URINE NITRITE NEGATIVE (NEGATIVE) URINE BLOOD NEGATIVE (NEGATIVE) URINE LEUK ESTERASE NEGATIVE (NEGATIVE) URINE RBC 0-1 rbc/hpf (0-1) URINE WBC 1-3 wbc/hpf (0-1) URINE EPITHELIAL CELLS 1-3 EPI/hpf (0-5) URINE BACTERIA FEW (1+) (NONE SEEN) URINE COMMENT CULT NOT INDICATED 1+ AMORPHOUS CRYSTALSURINE CULTURES ARE SET-UP BASED ON THE FOLLOWING CRITERIA:POSITIVE NITRITEPOSITIVE LEUKOCYTE ESTERASEGREATER THAN 10 WHITE BLOOD CELLSMODERATE (2+) OR GREATER BACTERIA Urine: (NORM: 06/24/2016 19:45) ( [facility] 06/24/2016 20:28) Final results Test Result Flag Units (Reference) URINE NEGATIVE CBC w Diff: (NORM: 06/24/2016 19:55) ( MsgRcvd 06/24/2016 21:02) Final results Test Result Flag Units (Reference) WHITE BLOOD COUNT 6.7 K/uL (4.5-11.5) RED BLOOD COUNT 4.24 M/uL (4.00-5.20) HEMOGLOBIN 13.5 gm/dL (12.0-16.0) HEMATOCRIT 39.7 % (36.0-46.0) MEAN CELL VOLUME 94 fL (80-100) MEAN CORPUSCULAR HGB 32 pg (26-34) MEAN CORPUSCULAR HGB CONC 34 g/dL (31-37) RED CELL DISTRIBUTION WIDTH 13.7 % (11.6-14.8) PLATELET COUNT 259 K/uL (150-400) NEUTROPHIL % 46.5 L % (50-75) LYMPH % 36.9 % (25-40) MONO % 8.9 % (3-14) EOSINOPHIL % 7.5 H % (0-4) BASOPHIL % 0.2 % (0-2) CMP: (NORM: 06/24/2016 19:55) ( MsgRcvd 06/24/2016 21:17) Final results Test Result Flag Units (Reference) GLUCOSE 105 mg/dL (70-110) BUN 9 mg/dL (7-18) CREATININE 0.7 mg/dL (0.6-1.3) Estimated GFR >60 mL/min Estimated GFR- >60 mL/min Note: Persistent reduction over 3 months in eGFR<60 mL/min/1.73 m2 defines CKD. Patients with eGFR values>=60 mL/min/1.73 m2 may also have CKD if evidence ofpersistent proteinuria. Additional information may be foundat www.kidney.org. SODIUM 141 mmol/L (136-145) POTASSIUM 3.9 mmol/L (3.5-5.1) CHLORIDE 107 mmol/L (98-107) CARBON DIOXIDE 24 mmol/L (21-32) CALCIUM 8.9 mg/dL (8.5-10.1) TOTAL PROTEIN 7.0 g/dL (6.4-8.2) ALBUMIN 3.5 g/dL (3.3-5.0) BILIRUBIN, TOTAL 0.2 mg/dL (0.0-1.0) ALKALINE PHOSPHATASE 76 U/L (46-116) AST (SGOT) 14 L U/L (15-37) ALT (SGPT) 28 U/L (12-78) LIPASE 162 U/L (73-393) . PROGRESS AND PROCEDURES Course of Care: 23:38 06/24/16. Assumed care of patient at 2100 when trying to assume chart it was noted that there had been no chart started for this patient. Have reviewed hx with Dr Mckeon and the patient Physical exam performed. IV NS White GI cocktail with transient results. Zofran 4 mg IV. Ultram 100 mg by mouth Protonix 40 mg by mouth Carafate 20 mL's by mouth. Patient is stable. Physical exam findings are improved. Symptoms much better. Patient/family counseled. Disposition orders written. Disposition: Discharged. Condition: stable. CLINICAL IMPRESSION Gastroesophageal reflux disease with esophagitis (moderate). Acute gastritis. No alcoholic gastritis or hemorrhagic gastritis. INSTRUCTIONS Drink plenty of fluids. Avoid alcohol and NSAIDS. Examples of NSAIDS include aspirin, ibuprofen (Advil) and naproxen (Aleve). Avoid spicy foods. Other diet: no caffeine. (Bed on 4 inch blocks.). Warnings: Further evaluation is necessary. SEDATIVE MEDICATION: You were given sedative medication during your visit. Do not drive or operate dangerous machinery. Your Current Medications: STOP TAKING THE FOLLOWING MEDICATIONS: NexIUM Oral. CONTINUE TAKING THE FOLLOWING MEDICATIONS: Aerospan Inhalation. Albuterol Sulfate Inhalation. Claritin*. Claritin Oral. Prescription Medications: Zofran (orally disintegrating tablets) 4 mg: take 1 orally every 6 hours as needed for nausea. Dispense ten (10). Carafate take 1 orally four times daily (30 minutes before meals and at bedtime) for 10 days. Dispense forty (40). No refills. Prilosec 40 mg capsules: take 1 capsule orally every day for 10 days. Dispense ten (10). No refill. Tramadol 50 mg: take 1-2 orally every 6 hours as needed for pain. Dispense ten (10). No refills. Follow-up: Follow up with your doctor Tuesday in four days. Call for an appointment. Understanding of the discharge instructions verbalized by patient. (Electronically signed by Grover Rincon MD 06/28/2016 7:49)
--- NOTE | 2016-06-24 23:51 | ED ORDER SUMMARY ---
..... Patient: MARTIN MARTIN OrderSheet [facility] VisitID: [id number] [place] [address] 40y, F Registration Date/Time: 06/24/2016 ORDER SHEET Weight: 95.2 kg (stated) Allergies: Shellfish-derived Products, Penicillin, Sulfa Antibiotics GENERAL ORDERS: UA-Culture if indicated Urgent (19:48 06/24/2016 Ely Roman) (Ack 19:51 CHagmusa ER Chlorination Operator) (20:02 MCook R.N.) Urine Urgent (19:48 06/24/2016 Ely Roman) (Ack 19:51 Celestino ER Chlorination Operator) (20:02 MCook R.N.) US Abdomen Limited (No) Urgent (20:38 06/24/2016 Ely Roman) (Ack 20:43 Celestino ER Chlorination Operator) (22:29 MCook R.N.) CBC w Diff Urgent (20:39 06/24/2016 Ely Roman) (20:41 DDavis R.N.) CMP Urgent (20:39 06/24/2016 Ely Roman) (20:41 DDavis R.N.) Lipase Urgent (20:39 06/24/2016 Ely Roman) (20:41 DDavis R.N.) MEDICATION ORDERS: GI Cocktail WHITE PO 30 mL (NOW) (20:39 06/24/2016 Ely Roman) (20:45 DDavis R.N.) Tramadol PO 100 mg (NOW) (23:41 06/24/2016 Fatmata PETTY) (23:59 MCook R.N.) Carafate PO 20 ml (NOW) (23:41 06/24/2016 Fatmata PETTY) (0:00 MCook R.N.) Protonix PO 40 mg (NOW) (23:41 06/24/2016 Fatmata PETTY) (23:59 MCook R.N.) IV FLUIDS: IV Saline Lock (20:39 06/24/2016 Ely Roman) (21:01 MCook R.N.) Toradol IV 30 mg (NOW) (22:26 06/24/2016 Екатерина Gutierres verbal order read back to Ely Roman) (22:27 Екатерина Gutierres) Toradol IV 30 mg (NOW) (22:31 06/24/2016 Ely Roman) (Cancelled: Duplicate Order22:31 Ely Roman) Zofran IV 4 mg (NOW) (23:41 06/24/2016 Fatmata PETTY) (23:57 Екатерина Gutierres) ORDER SHEET NOTES: [Electronically signed by Luciano James R.N. (00:16 06/25/2016)] [Electronically signed by Grover Rincon MD (07:49 06/28/2016)] [Electronically locked/signed by Luciano James R.N. (00:16 06/25/2016)]
--- NOTE | 2016-06-28 07:49 | ED DISCHARGE INSTRUCTIONS ---
Patient: MARTIN MARTIN General Instructions [facility] VisitID: [id number] [place] [address] 40y, F Registration Date/Time: 06/24/2016 Gastroesophageal reflux disease with esophagitis (moderate). Acute gastritis. No alcoholic gastritis or hemorrhagic gastritis. INSTRUCTIONS Drink plenty of fluids. Avoid alcohol and NSAIDS. Examples of NSAIDS include aspirin, ibuprofen (Advil) and naproxen (Aleve). Avoid spicy foods. Other diet: no caffeine. (Bed on 4 inch blocks.). Warnings: Further evaluation is necessary. SEDATIVE MEDICATION: You were given sedative medication during your visit. Do not drive or operate dangerous machinery. Your Current Medications: STOP TAKING THE FOLLOWING MEDICATIONS: NexIUM Oral. CONTINUE TAKING THE FOLLOWING MEDICATIONS: Aerospan Inhalation. Albuterol Sulfate Inhalation. Claritin*. Claritin Oral. Prescription Medications: Zofran (orally disintegrating tablets) 4 mg: take 1 orally every 6 hours as needed for nausea. Dispense ten (10). Carafate take 1 orally four times daily (30 minutes before meals and at bedtime) for 10 days. Dispense forty (40). No refills. Prilosec 40 mg capsules: take 1 capsule orally every day for 10 days. Dispense ten (10). No refill. Tramadol 50 mg: take 1-2 orally every 6 hours as needed for pain. Dispense ten (10). No refills. Follow-up: Follow up with your doctor Tuesday in four days. Call for an appointment. Understanding of the discharge instructions verbalized by patient. ADDITIONAL INFORMATION Gastritis (Adult) Gastritis is an irritation of the stomach lining. It can be acute (recent) or chronic (lasting a long time). Gastritis can be caused by overuse of alcohol or anti-inflammatory medications (such as aspirin, ibuprofen, or prednisone). H pyloriinfection can also cause chronic gastritis. Gastritis can cause a dull ache or burning pain in the upper abdomen. Other symptoms include nausea, vomiting, loss of appetite, and belching or bloating. Blood in the vomit or stools (red or black) is a sign of bleeding in the stomach. This requires immediate medical attention. Tests for H pyloriare used to screen for bacterial infection. If no infection is found, gastritis can be treated by stopping the cause and treating with antacids plus an acid laura medication. If H pylori infection is found, antibiotics will also be prescribed. Persons 55 years and older may undergo other tests before treatment is started. Two common tests are used to evaluate your symptoms. An upper GI series is an x-ray taken after you drink a chalky liquid called barium. This coats the stomach and allows the doctor to view any problems in the stomach on the x-ray. Another test is called endoscopy, during which a long thin tube called an endoscope is passed down your throat to the stomach. A camera at the end of the scope allows the doctor to view inside the stomach to check the cause of your symptoms. Home Care: Take the prescribed acid laura medication for the full course of treatment even if you begin to feel better sooner. This medication can take up to several days to fully control your symptoms. If you cant afford the prescribed medication, you can try [id number] acid blockers, such as Pepcid AC, Tagamet, Zantac, or Aciphex. If these do not relieve your symptoms, a stronger acid-laura can be tried, such as Prilosec OTC. If you have been prescribed an antibiotic to treat H pyloriinfection, finish the full course of medication. Do so even if you begin to feel better sooner. If you stop the medication too soon, the infection can return and be harder to treat. You can use antacids, such as Tums, Rolaids, Mylanta, or Maalox, for pain. This will be useful the first few days after starting acid blockers when the blockers havent started working yet. Follow the directions on the label. Liquid antacids may work better than tablets. Note that antacids can interfere with absorption of certain medications. Specifically, do not take Tagamet (cimetidine), Zantac (ranitidine), or Carafate (sucralfate) within 1 hour of taking an antacid. Talk with your pharmacist if you have any questions. Symptoms of gastritis can be worsened by certain foods. Limit or avoid fatty, fried, and spicy foods, as well as coffee, chocolate, mint, and foods with high acid content such as tomatoes and citrus fruit and juices (orange, grapefruit, lemon). Avoid alcohol, caffeine, and tobacco, which can delay healing. Avoid aspirin and anti-inflammatory medications such as ibuprofen (Advil, Motrin) and naproxen (Naprosyn, Aleve). Acetaminophen (Tylenol) is safe to use. Do not take more than the amount listed on the label. Follow Up with your doctor, or as advised by our staff. Further testing may be needed. If you do not improve over the next 4 days, contact your doctor. If you had an x-ray, CT scan, or ECG (electrocardiogram), it will be reviewed by a specialist. Youll be notified of any new findings that affect your care. Get Prompt Medical Attention if any of the following occur: Stomach pain gets worse or moves to the lower right abdomen (appendix area) Chest pain appears or gets worse, or spreads to the back, neck, shoulder, or arm Frequent vomiting (cant keep down liquids) Blood in the stool or vomit (red or black in color) Feeling weak or dizzy, fainting, or trouble breathing Fever of 100.4F (38C) or higher, or as directed by your healthcare provider Gastritis Versus Ulcer (No Antibiotic Tx) The symptoms of gastritis and peptic ulcer are very similar. Both can cause a dull ache or burning pain in the upper abdomen. Other symptoms include nausea, vomiting, loss of appetite, and belching or bloating. Blood in the vomit or stools (red or black) is a sign of bleeding in the stomach. This requires immediate medical attention. A Peptic Ulcer is an open sore in the lining of the stomach or duodenum (upper intestine). The most common cause of peptic ulcer disease is a bacterial infection (H pylori) in the stomach. Another common cause is taking anti-inflammatory medications (such as ibuprofen, prednisone, and aspirin). Gastritis is an irritation of the stomach lining. It can be acute (recent) or chronic (lasting a long time). Gastritis can be caused by overuse of alcohol or anti-inflammatory medications (such as aspirin, ibuprofen, prednisone). H pyloriinfection can also cause chronic gastritis. Tests for H pyloriare used to screen for bacterial infection. If no infection is found, ulcer and gastritis can be treated by stopping the cause, such as anti-inflammatory medications, alcohol, caffeine, and tobacco, and treating with antacids plus an acid laura medication. If H pylori infection is found, antibiotics will be prescribed along with an acid laura. Persons 55 years and older may undergo other tests before treatment is started. Two common tests are used to evaluate your symptoms. An upper GI series is an x-ray taken after you drink a chalky liquid called barium. This coats the stomach and allows an ulcer to show up on the x-ray. Another test is called endoscopy during which a long thin tube called an endoscope is passed down your throat to the stomach. A camera at the end of the scope allows the doctor to view inside the stomach to check the cause of your symptoms. Home Care: Take the prescribed acid laura medication for the full course of treatment even if you begin to feel better sooner. This medication can take up to several days to fully control your symptoms. If you cant afford the prescribed medication, you can try [id number] acid blockers, such as Pepcid AC, Tagamet, Zantac, or Aciphex. If these do not relieve your symptoms, a stronger acid-laura can be tried, such as Prilosec OTC. If you have been prescribed an antibiotic to treat H pyloriinfection, finish the full course of medication. Do so even if you begin to feel better sooner. If you stop the medication too soon, the infection can return and be harder to treat. You can use antacids, such as Tums, Rolaids, Mylanta, or Maalox, for pain. This will be useful the first few days after starting acid blockers when the blockers havent started working yet. Follow the directions on the label. Liquid antacids may work better than tablets. Note that antacids can interfere with absorption of certain medications. Specifically, do not take Tagamet (cimetidine), Zantac (ranitidine), or Carafate (sucralfate) within 1 hour of taking an antacid. Talk with your pharmacist if you have any questions. Although foods do not cause an ulcer, symptoms can be worsened by certain foods. Limit or avoid fatty, fried, and spicy foods, as well as coffee, chocolate, mint, and foods with high acid content such as tomatoes and citrus fruit and juices (orange, grapefruit, lemon). Avoid alcohol, caffeine, and tobacco, which can delay healing. Avoid aspirin and anti-inflammatory medications such as ibuprofen (Advil, Motrin) and naproxen (NaprosLigia potter). Acetaminophen (Tylenol) is safe to use. Do not take more than the amount listed on the label. Follow Up with your doctor or as advised. Further testing may be needed. If you do not begin to improve over the next 4 days, contact your doctor. If you had tests, youll be notified of any new findings that affect your care. Get Prompt Medical Attention if any of the following occur: Stomach pain gets worse or moves to the lower right abdomen (appendix area) Chest pain appears or gets worse, or spreads to the back, neck, shoulder, or arm Frequent vomiting (cant keep down liquids) Blood in the stool or vomit (red or black in color) Feeling weak or dizzy, fainting, or trouble breathing Fever of 100.4F (38C) or higher, or as directed by your healthcare provider GERD (Adult) The esophagus is a tube that carries food from the mouth to the stomach. A valve at the lower end of the esophagus prevents stomach acid from flowing upward. If this valve does not work properly, acid from the stomach enters the esophagus. If this occurs over and over, the acid will injure the lining of the esophagus. This condition is called GERD (gastroesophageal reflux disease) or acid reflux. When stomach acid flows upward into the esophagus, it causes burning, pressure or sharp pain in the upper abdomen or mid to lower chest. The pain can spread to the neck, back, or shoulder, similar to heart pain (angina). There may be belching, an acid taste in the back of the throat, chronic cough, or sore throat or hoarseness. GERD symptoms often occur during the day after a big meal, but it can also occur at night when lying down. Smoking,as well as drinking alcohol, increases the risk of GERD. GERD is a chronic condition. Once it begins, it is often lifelong. Treatment includes changes in eating habits and the use of acid laura medications to decrease the amount of acid in the stomach. Symptoms often improve with treatment, but if treatment is stopped, the symptoms usually return after a few months. So most persons with GERD will need to continue treatment. Home Care: Take the prescribed acid laura medication for the full course of treatment even if you begin to feel better sooner. This medication can take up to several days to fully control your symptoms. If you cant afford the prescribed medication, you can try [id number]-saphuxr acid blockers, such as Pepcid AC, Tagamet, Zantac, or Aciphex. If these do not relieve your symptoms, a stronger acid-laura can be tried, such as Prilosec OTC. You can use antacids, such as Tums, Rolaids, Mylanta, or Maalox, for pain. This will be useful the first few days after starting acid blockers when the blockers havent started working yet. Follow the directions on the label. Liquid antacids may work better than tablets. Note that antacids can interfere with absorption of certain medications. Specifically, do not take Tagamet (cimetidine), Zantac (ranitidine), or Carafate (sucralfate) within 1 hour of taking an antacid. Talk with your pharmacist if you have any questions. Limit or avoid fatty, fried, and spicy foods, as well as coffee, chocolate, mint, and foods with high acid content such as tomatoes and citrus fruit and juices (orange, grapefruit, lemon). Avoid alcohol and smoking. Dont eat large meals, especially at night. Frequent, smaller meals are best. Do not lie down right after eating. And dont eat anything 3 hours before going to bed. If you are overweight, losing weight will reduce symptoms. Women should not wear corsets or girdles because this increases pressure on the stomach and worsens reflux. If your symptoms occur during sleep, use a foam wedge to elevate your upper body (not just your head.) Or, place 4" blocks under the head of your bed. Follow Up with your doctor or as advised by our staff. Further testing may be needed. If you do not begin to improve over the next 4 days, contact your doctor. If you had an x-ray, CT scan, or ECG (electrocardiogram), it will be reviewed by a specialist. Youll be notified of any new findings that affect your care. Get Prompt Medical Attention if any of the following occur: Stomach pain gets worse or moves to the lower right abdomen (appendix area) Chest pain appears or gets worse, or spreads to the back, neck, shoulder, or arm Frequent vomiting (cant keep down liquids) Blood in the stool or vomit (red or black in color) Feeling weak or dizzy, fainting, or trouble breathing Fever of 100.4F (38C) or higher, or as directed by your healthcare provider [place] Diet A bland diet is used for patients with an upset stomach. It consists of foods that are mild and easy to digest. It is better to eat small frequent meals rather than three large meals a day. BEVERAGES OK: Fruit juices, non-caffeinated teas and coffee, non-carbonated rebollar AVOID: Carbonated beverage, caffeinated tea and coffee, all alcoholic beverages BREAD OK: Refined white, wheat or rye bread, amos or soda crackers, [place] toast, plain rolls, bagels AVOID: Whole-grain bread CEREAL OK: Refined cereals: cooked or ready to eat AVOID: Whole grain cereals and granola, or those containing bran, seeds or nuts DESSERTS OK: Peanut butter and all others except those to "avoid" AVOID: Chocolate, cocoa, coconut, popcorn, nuts, seeds, jam, marmalade FRUITS OK: Canned, cooked, frozen or fresh fruits without seeds or tough skin AVOID: Olives, skin and seeds of fruit MEATS OK: All fresh or preserved meat, fish and fowl AVOID: Any that are prepared with those spices to "avoid" CHEESE & EGGS OK: Eggs, cottage cheese, cream cheese, other cheeses AVOID: All cheeses made with those spices to "avoid" POTATOES & PASTA OK: Potato, rice, macaroni, noodles, spaghetti AVOID: None SOUPS OK: All soups without heavy seasoning AVOID: Soups made with those spices to "avoid" VEGETABLES OK: Canned, cooked, fresh or frozen mildly flavored vegetables without seeds, skins or coarse fiber AVOID: Vegetables prepared with those spices to "avoid"; skin and seeds of vegetables and those with coarse fiber SPICES OK: Salt, lemon and ch[place] juice, vinegar, all extracts, sheyla, cinnamon, thyme, mace, allspice, paprika AVOID: [place] powder, cloves, pepper, seed spices, garlic, gravy pickles, highly seasoned salad dressings Ondansetron Oral disintegrating tablet What is this medicine? ONDANSETRON (on ANNABEL se ulysses) is used to treat nausea and vomiting caused by chemotherapy. It is also used to prevent or treat nausea and vomiting after surgery. How should I use this medicine? These tablets are made to dissolve in the mouth. Do not try to push the tablet through the foil backing. With dry hands, peel away the foil backing and gently remove the tablet. Place the tablet in the mouth and allow it to dissolve, then swallow. While you may take these tablets with water, it is not necessary to do so. Talk to your vegetable washer regarding the use of this medicine in children. Special care may be needed. What side effects may I notice from receiving this medicine? Side effects that you should report to your doctor or health youth career specialist as soon as possible: allergic reactions like skin rash, itching or hives, swelling of the face, lips, or tongue breathing problems dizziness fast or irregular heartbeat feeling faint or lightheaded, falls fever and chills swelling of the hands and feet tightness in the chest Side effects that usually do not require medical attention (report to your doctor or health youth career specialist if they continue or are bothersome): constipation or diarrhea headache What may interact with this medicine? Do not take this medicine with any of the following medications: -apomorphine -cisapride -dofetilide -dronedarone -pimozide -thioridazine -ziprasidone This medicine may also interact with the following medications: -carbamazepine -phenytoin -rifampicin -tramadol -other medicines that prolong the QT interval (cause an abnormal heart rhythm) What if I miss a dose? If you miss a dose, take it as soon as you can. If it is almost time for your next dose, take only that dose. Do not take double or extra doses. Where should I keep my medicine? Keep out of the reach of children. Store between 2 and 30 degrees C (36 and 86 degrees F). Throw away any unused medicine after the expiration date. What should I tell my health care provider before I take this medicine? They need to know if you have any of these conditions: heart disease history of irregular heartbeat liver disease low levels of magnesium or potassium in the blood an unusual or allergic reaction to ondansetron, granisetron, other medicines, foods, dyes, or preservatives or trying to get breast-feeding What should I watch for while using this medicine? Check with your doctor or health youth career specialist as soon as you can if you have any sign of an allergic reaction. Sucralfate Oral tablet What is this medicine? SUCRALFATE (JOÃO dago fate) helps to treat ulcers of the intestine. How should I use this medicine? Take this medicine by mouth with a glass of water. Follow the directions on the prescription label. This medicine works best if you take it on an empty stomach, 1 hour before meals. Take your doses at regular intervals. Do not take your medicine more often than directed. Do not stop taking except on your doctor's advice. Talk to your vegetable washer regarding the use of this medicine in children. Special care may be needed. What side effects may I notice from receiving this medicine? Side effects that you should report to your doctor or health youth career specialist as soon as possible: allergic reactions like skin rash, itching or hives, swelling of the face, lips, or tongue difficulty breathing Side effects that usually do not require medical attention (report to your doctor or health youth career specialist if they continue or are bothersome): back pain constipation drowsy, dizzy dry mouth headache stomach upset, gas trouble sleeping What may interact with this medicine? antacid cimetidine digoxin ketoconazole phenytoin quinidine ranitidine some antibiotics like ciprofloxacin, norfloxacin, and ofloxacin theophylline thyroid hormones warfarin What if I miss a dose? If you miss a dose, take it as soon as you can. If it is almost time for your next dose, take only that dose. Do not take double or extra doses. Where should I keep my medicine? Keep out of the reach of children. Store at room temperature between 15 and 30 degrees C (59 and 86 degrees F). Keep container tightly closed. Throw away any unused medicine after the expiration date. What should I tell my health care provider before I take this medicine? They need to know if you have any of these conditions: kidney disease an unusual or allergic reaction to sucralfate, other medicines, foods, dyes, or preservatives or trying to get breast-feeding What should I watch for while using this medicine? Visit your doctor or health youth career specialist for regular check ups. Let your doctor know if your symptoms do not improve or if you feel worse. Antacids should not be taken within one half hour before or after this medicine. Omeprazole Magnesium Gastro-resistant tablet What is this medicine? OMEPRAZOLE (oh ME pray zol) prevents the production of acid in the stomach. It is used to treat the symptoms of heartburn. You can buy this medicine without a prescription. This product is not for long-term use, unless otherwise directed by your doctor or health youth career specialist. How should I use this medicine? Take this medicine by mouth. Follow the directions on the product label. If you are taking this medicine without a prescription, take one tablet every day. Do not use for longer than 14 days or repeat a course of treatment more often than every 4 months unless directed by a doctor or healthcare professional. Take your dose at regular intervals every 24 hours. Swallow the tablet whole with a drink of water. Do not crush, break or chew. This medicine works best if taken on an empty stomach 30 minutes before breakfast. If you are using this medicine with the prescription of your doctor or healthcare professional, follow the directions you were given. Do not take your medicine more often than directed. Talk to your vegetable washer regarding the use of this medicine in children. Special care may be needed. What side effects may I notice from receiving this medicine? Side effects that you should report to your doctor or health youth career specialist as soon as possible: allergic reactions like skin rash, itching or hives, swelling of the face, lips, or tongue bone, muscle or joint pain breathing problems chest pain or chest tightness dark yellow or brown urine diarrhea dizziness fast, irregular heartbeat feeling faint or lightheaded fever or sore throat muscle spasm palpitations redness, blistering, peeling or loosening of the skin, including inside the mouth seizures tremors unusual bleeding or bruising unusually weak or tired yellowing of the eyes or skin Side effects that usually do not require medical attention (Report these to your doctor or health youth career specialist if they continue or are bothersome.): constipation dry mouth headache loose stools nausea What may interact with this medicine? Do not take this medicine with any of the following medications: atazanavir clopidogrel nelfinavir This medicine may also interact with the following medications: ampicillin certain medicines for anxiety or sleep certain medicines that treat or prevent blood clots like warfarin cyclosporine diazepam digoxin disulfiram iron salts phenytoin prescription medicine for fungal or yeast infection like itraconazole, ketoconazole, voriconazole saquinavir tacrolimus What if I miss a dose? If you miss a dose, take it as soon as you can. If it is almost time for your next dose, take only that dose. Do not take double or extra doses. Where should I keep my medicine? Keep out of the reach of children. Store at room temperature between 20 and 25 degrees C (68 and 77 degrees F). Protect from light and moisture. Throw away any unused medicine after the expiration date. What should I tell my health care provider before I take this medicine? They need to know if you have any of these conditions: black or bloody stools chest pain difficulty swallowing have had heartburn for over 3 months have heartburn with dizziness, lightheadedness or sweating liver disease stomach pain unexplained weight loss vomiting with blood wheezing an unusual or allergic reaction to omeprazole, other medicines, foods, dyes, or preservatives or trying to get breast-feeding What should I watch for while using this medicine? It can take several days before your heartburn gets better. Check with your doctor or health youth career specialist if your condition does not start to get better, or if it gets worse. Do not treat diarrhea with over the counter products. Contact your doctor if you have diarrhea that lasts more than 2 days or if it is severe and watery. Do not treat yourself for heartburn with this medicine for more than 14 days in a row. You should only use this medicine for a 2-week treatment period once every 4 months. If your symptoms return shortly after your therapy is complete, or within the 4 month time frame, call your doctor or health youth career specialist. Tramadol Hydrochloride Oral tablet What is this medicine? TRAMADOL (TRA ma dole) is a pain reliever. It is used to treat moderate to severe pain in adults. How should I use this medicine? Take this medicine by mouth with a full glass of water. Follow the directions on the prescription label. If the medicine upsets your stomach, take it with food or milk. Do not take more medicine than you are told to take. Talk to your vegetable washer regarding the use of this medicine in children. Special care may be needed. What side effects may I notice from receiving this medicine? Side effects that you should report to your doctor or health youth career specialist as soon as possible: allergic reactions like skin rash, itching or hives, swelling of the face, lips, or tongue breathing difficulties, wheezing confusion itching light headedness or fainting spells redness, blistering, peeling or loosening of the skin, including inside the mouth seizures Side effects that usually do not require medical attention (report to your doctor or health youth career specialist if they continue or are bothersome): constipation dizziness drowsiness headache nausea, vomiting What may interact with this medicine? Do not take this medicine with any of the following medications: MAOIs like Carbex, Eldepryl, Marplan, Nardil, and Parnate This medicine may also interact with the following medications: alcohol or medicines that contain alcohol antihistamines benzodiazepines bupropion carbamazepine or oxcarbazepine clozapine cyclobenzaprine digoxin furazolidone linezolid medicines for depression, anxiety, or psychotic disturbances medicines for migraine headache like almotriptan, eletriptan, frovatriptan, naratriptan, rizatriptan, sumatriptan, zolmitriptan medicines for pain like pentazocine, buprenorphine, butorphanol, meperidine, nalbuphine, and propoxyphene medicines for sleep muscle relaxants naltrexone phenobarbital phenothiazines like perphenazine, thioridazine, chlorpromazine, mesoridazine, fluphenazine, prochlorperazine, promazine, and trifluoperazine procarbazine warfarin What if I miss a dose? If you miss a dose, take it as soon as you can. If it is almost time for your next dose, take only that dose. Do not take double or extra doses. Where should I keep my medicine? Keep out of the reach of children. Store at room temperature between 15 and 30 degrees C (59 and 86 degrees F). Keep container tightly closed. Throw away any unused medicine after the expiration date. What should I tell my health care provider before I take this medicine? They need to know if you have any of these conditions: brain tumor depression drug abuse or addiction head injury if you frequently drink alcohol containing drinks kidney disease or trouble passing urine liver disease lung disease, asthma, or breathing problems seizures or epilepsy suicidal thoughts, plans, or attempt; a previous suicide attempt by you or a family member an unusual or allergic reaction to tramadol, codeine, other medicines, foods, dyes, or preservatives or trying to get breast-feeding What should I watch for while using this medicine? Tell your doctor or health youth career specialist if your pain does not go away, if it gets worse, or if you have new or a different type of pain. You may develop tolerance to the medicine. Tolerance means that you will need a higher dose of the medicine for pain relief. Tolerance is normal and is expected if you take this medicine for a long time. Do not suddenly stop taking your medicine because you may develop a severe reaction. Your body becomes used to the medicine. This does NOT mean you are addicted. Addiction is a behavior related to getting and using a drug for a non-medical reason. If you have pain, you have a medical reason to take pain medicine. Your doctor will tell you how much medicine to take. If your doctor wants you to stop the medicine, the dose will be slowly lowered over time to avoid any side effects. You may get drowsy or dizzy. Do not drive, use machinery, or do anything that needs mental alertness until you know how this medicine affects you. Do not stand or sit up quickly, especially if you are an older patient. This reduces the risk of dizzy or fainting spells. Alcohol can increase or decrease the effects of this medicine. Avoid alcoholic drinks. You may have constipation. Try to have a bowel movement at least every 2 to 3 days. If you do not have a bowel movement for 3 days, call your doctor or health youth career specialist. Your mouth may get dry. Chewing sugarless gum or sucking hard candy, and drinking plenty of water may help. Contact your doctor if the problem does not go away or is severe. You have been given the following additional information: Gastritis (Adult) Gastritis Vs. Ulcer GERD (Adult) Diet, [place] (Adult) Ondansetron Oral disintegrating tablet Sucralfate Oral tablet Omeprazole Magnesium Gastro-resistant tablet Tramadol Hydrochloride Oral tablet (Electronically signed by Grover Rincon MD 06/28/2016 7:49)
--- NOTE | 2016-06-28 07:50 | ED MAR SUMMARY ---
..... Medication Administration Record [facility] [address] [place] [address] Patient: MARTIN MARTIN Visit ID: [id number] 40y, F Weight: 95.2 kg Height/Length: 67 in BMI: 32.9 ALLERGIES: Sulfa Antibiotics, Penicillin, Shellfish-derived Products Given 20:45 06/24/2016 Khang Landon R.N. Medication Administered: GI COCKTAIL WHITE [PO] (SIMETHICONE), Dose: 30 mL Oral Suspension PO. Medication Ordered: GI Cocktail WHITE PO 30 mL (NOW). Given 22:27 06/24/2016 Luciano James R.N. Medication Administered: TORADOL [IVP], Dose: 30 mg IVP over 2 minute(s), Site: #1 right AC. Medication Ordered: Toradol IV 30 mg (NOW). Given 23:57 06/24/2016 Luciano James R.N. Medication Administered: ZOFRAN [IVP] (ONDANSETRON HCL), Dose: 4 mg IVP over 2 minute(s), Site: #1 right AC. Medication Ordered: Zofran IV 4 mg (NOW). Given 23:59 06/24/2016 Luciano James R.N. Medication Administered: TRAMADOL [PO] (TRAMADOL HCL), Dose: 100 mg Tablets PO. Medication Ordered: Tramadol PO 100 mg (NOW). Given 23:59 06/24/2016 Luciano James R.N. Medication Administered: CARAFATE [PO] (SUCRALFATE), Dose: 2 gm Oral Suspension PO. Medication Ordered: Carafate PO 20 ml (NOW). Given 23:06/24/2016 Luciano James R.N. Medication Administered: PROTONIX [PO] (PANTOPRAZOLE SODIUM), Dose: 40 mg Tablets PO. Medication Ordered: Protonix PO 40 mg (NOW).
--- NOTE | 2016-06-28 07:50 | ED MED RECONCILIATION SUMMARY ---
Patient: MARTIN MARTIN Medication Reconciliation Report [facility] VisitID: [id number] [address] [place] [address] 40y, F Registration Date/Time: 06/24/2016 Weight: 95.2 kg Height/Length: 67 in. BMI: 32.9 ALLERGIES: Penicillin, Shellfish-derived Products, Sulfa Antibiotics The patient's Home Medications are listed below: STOP TAKING THE FOLLOWING MEDICATIONS: NexIUM Oral CONTINUE TAKING THE FOLLOWING MEDICATIONS: Aerospan Inhalation Albuterol Sulfate Inhalation Claritin Claritin Oral The source(s) of the original Home Medication information: Not obtained. The following Medications were given to the patient in the Emergency Department: GI COCKTAIL WHITE [PO] PO 30 mL, administered: 06/24/2016 8:45:00 PM Toradol [IVP] IVP 30 mg, administered: 06/24/2016 10:27:00 PM Zofran [IVP] IVP 4 mg, administered: 06/24/2016 11:57:00 PM Tramadol [PO] PO 100 mg, administered: 06/24/2016 11:59:00 PM Protonix [PO] PO 40 mg, administered: 06/24/2016 11:59:00 PM Carafate [PO] PO 2 gm, administered: 06/24/2016 11:59:00 PM The following Medications were prescribed to the patient: Zofran (orally disintegrating tablets) 4 mg: take 1 orally every 6 hours as needed for nausea. Dispense ten (10). -- Grover Rincon MD Carafate take 1 orally four times daily (30 minutes before meals and at bedtime) for 10 days. Dispense forty (40). No refills. -- Grover Rincon MD Prilosec 40 mg capsules: take 1 capsule orally every day for 10 days. Dispense ten (10). No refill. -- Grover Rincon MD Tramadol 50 mg: take 1-2 orally every 6 hours as needed for pain. Dispense ten (10). No refills. -- Grover Rincon MD
--- NOTE | 2016-06-28 07:50 | ED MAR SUMMARY ---
..... Medication Administration Record [facility] [address] [place] [address] Patient: MARTIN MARTIN Visit ID: [id number] 40y, F Weight: 95.2 kg Height/Length: 67 in BMI: 32.9 ALLERGIES: Sulfa Antibiotics, Penicillin, Shellfish-derived Products Given 20:45 06/24/2016 Khang Landon R.N. Medication Administered: GI COCKTAIL WHITE [PO] (SIMETHICONE), Dose: 30 mL Oral Suspension PO. Medication Ordered: GI Cocktail WHITE PO 30 mL (NOW). Given 22:27 06/24/2016 Luciano James R.N. Medication Administered: TORADOL [IVP], Dose: 30 mg IVP over 2 minute(s), Site: #1 right AC. Medication Ordered: Toradol IV 30 mg (NOW). Given 23:57 06/24/2016 Luciano James R.N. Medication Administered: ZOFRAN [IVP] (ONDANSETRON HCL), Dose: 4 mg IVP over 2 minute(s), Site: #1 right AC. Medication Ordered: Zofran IV 4 mg (NOW). Given 23:59 06/24/2016 Luciano James R.N. Medication Administered: TRAMADOL [PO] (TRAMADOL HCL), Dose: 100 mg Tablets PO. Medication Ordered: Tramadol PO 100 mg (NOW). Given 23:59 06/24/2016 Luciano James R.N. Medication Administered: CARAFATE [PO] (SUCRALFATE), Dose: 2 gm Oral Suspension PO. Medication Ordered: Carafate PO 20 ml (NOW). Given 23:06/24/2016 Luciano James R.N. Medication Administered: PROTONIX [PO] (PANTOPRAZOLE SODIUM), Dose: 40 mg Tablets PO. Medication Ordered: Protonix PO 40 mg (NOW).
--- NOTE | 2016-06-28 07:50 | ED MED RECONCILIATION SUMMARY ---
Patient: MARTIN MARTIN Medication Reconciliation Report [facility] VisitID: [id number] [address] [place] [address] 40y, F Registration Date/Time: 06/24/2016 Weight: 95.2 kg Height/Length: 67 in. BMI: 32.9 ALLERGIES: Penicillin, Shellfish-derived Products, Sulfa Antibiotics The patient's Home Medications are listed below: STOP TAKING THE FOLLOWING MEDICATIONS: NexIUM Oral CONTINUE TAKING THE FOLLOWING MEDICATIONS: Aerospan Inhalation Albuterol Sulfate Inhalation Claritin Claritin Oral The source(s) of the original Home Medication information: Not obtained. The following Medications were given to the patient in the Emergency Department: GI COCKTAIL WHITE [PO] PO 30 mL, administered: 06/24/2016 8:45:00 PM Toradol [IVP] IVP 30 mg, administered: 06/24/2016 10:27:00 PM Zofran [IVP] IVP 4 mg, administered: 06/24/2016 11:57:00 PM Tramadol [PO] PO 100 mg, administered: 06/24/2016 11:59:00 PM Protonix [PO] PO 40 mg, administered: 06/24/2016 11:59:00 PM Carafate [PO] PO 2 gm, administered: 06/24/2016 11:59:00 PM The following Medications were prescribed to the patient: Zofran (orally disintegrating tablets) 4 mg: take 1 orally every 6 hours as needed for nausea. Dispense ten (10). -- Grover Rincon MD Carafate take 1 orally four times daily (30 minutes before meals and at bedtime) for 10 days. Dispense forty (40). No refills. -- Grover Rincon MD Prilosec 40 mg capsules: take 1 capsule orally every day for 10 days. Dispense ten (10). No refill. -- Grover Rincon MD Tramadol 50 mg: take 1-2 orally every 6 hours as needed for pain. Dispense ten (10). No refills. -- Grover Rincon MD
== END 2016-06-25 00:13 | disposition home or self-care (01) ==
LOC: ED SRH 17:53
DX: K21.0 Gastro-esophageal reflux disease with esophagitis (principal); K29.00 Acute gastritis without bleeding; Z88.0 Allergy status to penicillin; Z88.2 Allergy status to sulfonamides; Z91.013 Allergy to seafood; Z79.899 Other long term (current) drug therapy
CPT/HCPCS: 90004; 90100; 92235; 93070; 95059